=== PATIENT | female | born 2000 | race Caucasian/White ===

== ENCOUNTER 2021-03-02 14:26 | Emergency (ER) | payer SELFPAY ==
[2021-03-02 15:16] LABS: #Basophils 0.1 thou/uL (0.0-0.2); #Eosinphils 0.4 thou/uL (0.0-0.7); #Lymphocytes 3.6 thou/uL (1.20-3.40); #Monocytes 0.8 thou/uL (0.11-0.59); #Neutrophils 7.8 thou/uL (1.40-6.50); %Basophils 0.8 % (0.0-1.0); %Eosinophils 3.1 % (0.0-10.0); %Lymphocytes 28.5 % (28.0-48.0); %Monocytes 6.5 % (0.0-4.0); %Neutrophils 61.2 % (31.0-61.0); Mean Corpuscular HGB CONC 31.1 g/dL (32.0-36.0); Mean Corpuscular Hemoglobin 27.7 pg (25.0-35.0); Mean Corpuscular Volume 89.1 fL (78.0-98.0); Mean Platelet Volume 11.9 fL (7.4-10.4); Platelet Count 207 thou/uL (130-400); RBC Distribution Width 12.4 % (11.5-14.5); Red Blood Cell (RBC) Count 5.42 mill/uL (4.00-5.20); White Blood Cell (WBC) Count 12.7 thou/uL (4.8-10.8)
[2021-03-02 15:32] LABS: ALT (SGPT) 15 U/L (8-55); AST (SGOT) 14 U/L (5-30); Albumin 3.9 g/dL (3.5-5.0); Alkaline Phosphatase 102 U/L (40-100); Anion Gap 13 mmol/L (10-20); BUN (Urea Nitrogen) 7 mg/dL (8.4-21.0); Bilirubin, Total 0.6 mg/dL (0.2-1.2); Calc. Creatinine Clearance 0 mL/min (70-130); Calcium 9.4 mg/dL (7.8-10.44); Carbon Dioxide 21 mmol/L (22-29); Chloride 107 mmol/L (98-107); Glucose 90 mg/dL (70-105); Potassium 3.8 mmol/L (3.5-5.1); Protein, Total 6.9 g/dL (6.0-8.3); Sodium 137 mmol/L (136-145)
[2021-03-02] MEDS ORDERED: Acetaminophen 325 MG TAB ONE (17:10)
== END 2021-03-02 18:24 | disposition home or self-care (01) ==
LOC: NAV ERS 14:26
DX: O03.9 Complete or unspecified spontaneous abortion without complication (principal); J45.909 Unspecified asthma, uncomplicated
CPT/HCPCS: 36415; 80053; 85025; 86900; 86901; 88300; 99284

== ENCOUNTER 2022-07-07 15:53 | Emergency (ER) | payer SELFPAY ==
[2022-07-07 16:57] LABS: BHCG - Serum POSITIVE (NEGATIVE); Pregs Control Bar Appear? YES (CONTROL BAR)
== END 2022-07-07 17:18 | disposition home or self-care (01) ==
LOC: NAV ERS 15:53
DX: Z32.01 Encounter for pregnancy test, result positive (principal); O99.330 Smoking (tobacco) complicating pregnancy, unspecified trimester; F17.290 Nicotine dependence, other tobacco product, uncomplicated
CPT/HCPCS: 84703; 99281